=== PATIENT | male | born 1935 | race Caucasian/White ===

== ENCOUNTER 2023-03-23 13:07 | Emergency (ER) | payer OTHER, MEDICAID ==
[~2023-03-23] VITALS: Ht 165.1 cm; Wt 63.5 kg
[2023-03-23 13:10] VITALS: BP_SYST 126
--- NOTE | 2023-03-23 13:15 | NUR ---
BROUGHT BACK TO BED #5 AND TRIAGED. REPORT GIVEN TO JUAN JOSE
--- NOTE | 2023-03-23 13:20 | NUR ---
PT RECEIVED, CARE ASSUMED. PT PRESENTS SELF TO ER FOR EVALUATION OF HICCUPS X1 DAY. PT STATES THIS NEVER HAPPEN BEOFRE. DR LICONA AT BEDSIDE
[2023-03-23 13:48] LABS: BASOPHILS % (AUTO) 0.6 % (0.0-2.0); EOSINOPHILS # (AUTO) 0.2 K/uL (0.0-0.4); EOSINOPHILS % (AUTO) 2.6 % (0.0-4.0); HEMATOCRIT 42.4 % (36-54); HEMOGLOBIN 14.2 g/dL (14.0-18.0); LYMPHOCYTES # (AUTO) 1.8 K/uL (1.0-5.5); LYMPHOCYTES % (AUTO) 30.1 % (20.5-51.5); MEAN CORPUSCULAR HEMOGLOBIN 31 pg (27-31); MEAN CORPUSCULAR HGB CONC 34 % (32-36); MEAN CORPUSCULAR VOLUME 92 fL (79.0-98.0); MONOCYTES # (AUTO) 0.9 K/uL (0.0-1.0); MONOCYTES % (AUTO) 15.5 % (1.7-9.3); NEUTROPHILS # (AUTO) 3.1 K/uL (1.8-7.7); NEUTROPHILS % (AUTO) 51.2 % (40.0-70.0); PLATELET COUNT (AUTO) 197 K/uL (130-430); RED CELL DISTRIBUTION WIDTH 14.2 % (9.0-15.0)
[2023-03-23 14:05] LABS: ANION GAP 9 (5-15); CALCIUM 8.1 mg/dL (8.4-11.0); CHLORIDE 96 mmol/L (98-107); CREATININE 0.85 mg/dL (0.55-1.30); GLUCOSE 126 mg/dL (70-99); UREA NITROGEN, BLOOD 10 mg/dL (8-21)
[2023-03-23 14:09] LABS: ALANINE AMINOTRANSFERASE 33 U/L (12-78); ALBUMIN 3.7 g/dL (3.4-4.8); ASPARTATE AMINOTRANSFERASE 22 U/L (10-37); TOTAL BILIRUBIN 0.4 mg/dL (0.0-1.0)
[2023-03-23] MEDS ORDERED: METOCLOPRAMIDE HCL 10 MG/2 ML VIAL IM ONE (14:30)
[2023-03-23] MEDS ORDERED: METO-290 PO (15:34)
[2023-03-23] MEDS ORDERED: AUG875 PO (15:34)
[2023-03-23 16:13] VITALS: BP_SYST 137
--- NOTE | 2023-03-23 16:15 | NUR ---
Patient given written and verbal discharge instructions and verbalizes understanding. ER MD discussed with patient the results and treatment provided. Patient in stable condition. ID arm band removed. IV catheter removed intact and dressing applied, no active bleeding. Rx of given. Patient educated on pain management and to follow up with PMD. Pain Scale . Opportunity for questions provided and answered. Medication side effect fact sheet provided.
== END 2023-03-23 16:15 | disposition home or self-care (01) ==
LOC: SED 13:07
DX: J06.9 Acute upper respiratory infection, unspecified (principal); J32.9 Chronic sinusitis, unspecified; R06.6 Hiccough; R09.81 Nasal congestion; K21.9 Gastro-esophageal reflux disease without esophagitis; I10 Essential (primary) hypertension; Z79.899 Other long term (current) drug therapy; Z20.822 Contact with and (suspected) exposure to COVID-19
CPT/HCPCS: 99284; 96374; 87426; 80053; 85025; 36415; 93005; 87804 ×2; J2765

== ENCOUNTER 2024-05-06 14:07 | Inpatient (IN) | payer OTHER, MEDICAID ==
[~2024-05-06] VITALS: Ht 160 cm; Wt 65.9 kg
[~2024-05-06 14:07] MED LIST: AUG875 PO; METO-290 PO
[2024-05-06 14:34] VITALS: BP_SYST 132; PULSE 85; RESP 18; TEMP 98.3; O2SAT 97
[2024-05-06 14:52] LABS: HEMOGLOBIN 14.3 g/dL (14.0-18.0); MEAN CORPUSCULAR HEMOGLOBIN 31 pg (27-31); MEAN CORPUSCULAR HGB CONC 35 % (32-36); WHITE BLOOD COUNT (AUTO) 5.7 K/uL (4.8-10.8)
[2024-05-06 15:00] LABS: BASOPHILS % (AUTO) 0.5 % (0.0-2.0); EOSINOPHILS # (AUTO) 0.1 K/uL (0.0-0.4); EOSINOPHILS % (AUTO) 2.5 % (0.0-4.0); LYMPHOCYTES # (AUTO) 2.2 K/uL (1.0-5.5); LYMPHOCYTES % (AUTO) 38.1 % (20.5-51.5); MEAN CORPUSCULAR VOLUME 90 fL (79.0-98.0); MONOCYTES # (AUTO) 0.5 K/uL (0.0-1.0); MONOCYTES % (AUTO) 8.6 % (1.7-9.3); NEUTROPHILS # (AUTO) 2.8 K/uL (1.8-7.7); NEUTROPHILS % (AUTO) 50.3 % (40.0-70.0); PLATELET COUNT (AUTO) 307 K/uL (130-430); RED BLOOD CELL COUNT(AUTO) 4.57 MIL/uL (4.2-6.2); RED CELL DISTRIBUTION WIDTH 13.5 % (9.0-15.0)
[2024-05-06 15:06] LABS: ANION GAP 10 (5-15); CALCIUM 8.4 mg/dL (8.4-11.0); CARBON DIOXIDE 26 mmol/L (23-29); CHLORIDE 105 mmol/L (98-107); CREATININE 0.78 mg/dL (0.55-1.30); GLUCOSE 94 mg/dL (74-106); POTASSIUM 3.3 mmol/L (3.5-5.1); SODIUM SERUM 141 mmol/L (136-145); UREA NITROGEN, BLOOD 14 mg/dL (8-21)
[2024-05-06 15:20] LABS: INFLUENZA TYPE A Negative (NEGATIVE); INFLUENZA TYPE B NEGATIVE (NEGATIVE)
[2024-05-06] MEDS ORDERED: MAGNESIUM SULFATE 50 ML IV PRN (15:45)
[2024-05-06] MEDS ORDERED: MORPHINE 2 MG/ML INJ. SYRINGE IVP PRN ×2 (15:45)
[2024-05-06] MEDS ORDERED: MUPIROCIN 2% TOPICAL OINTMENT 22 GM NS PRN (15:45)
[2024-05-06] MEDS ORDERED: IPRATROPIUM/ALBUTEROL SULFATE 3 ML AMPUL.NEB (DUONEB) INH PRN (15:45)
[2024-05-06] MEDS ORDERED: POTASSIUM CHLORIDE 20 MEQ TABLET.ER PO PRN (15:45)
[2024-05-06] MEDS ORDERED: DOCUSATE SODIUM 100 MG CAPSULE PO PRN (15:45)
[2024-05-06] MEDS ORDERED: LORazepam 2 MG/ML VIAL IVP PRN (15:45)
[2024-05-06] MEDS ORDERED: ACETAMINOPHEN 325 MG TABLET PO PRN (15:45)
[2024-05-06] MEDS ORDERED: ZOLPIDEM TARTRATE 5 MG TABLET PO PRN (15:45)
[2024-05-06] MEDS ORDERED: ONDANSETRON HCL 4 MG/2 ML VIAL IVP PRN (15:45)
[2024-05-06 15:53] VITALS: BP_SYST 132; PULSE 85; O2SAT 97
[2024-05-06] MEDS ORDERED: cefTRIAXone 1 GM VIAL ONE (15:54)
[2024-05-06] MEDS: cefTRIAXone 1 GM in D5W 50 ML IV ONE (16:05)
[2024-05-06] MEDS ORDERED: LINA145C PO (16:40)
[2024-05-06] MEDS ORDERED: PANT40TA45 PO (16:40)
[2024-05-06] MEDS ORDERED: FINA5TAB11 PO (16:40)
[2024-05-06] MEDS: NACL 0.9% 1,000 ML IV SCH (18:00)
[2024-05-06] MEDS: POTASSIUM CHLORIDE 20 MEQ TABLET.ER PO ONE (18:46)
[2024-05-06] MEDS: AZITHROMYCIN 250 MG TABLET PO ONE (18:47)
[2024-05-06 20:49] VITALS: O2SAT 100
[2024-05-06] MEDS: DECADRON 4 MG TABLET PO SCH (23:38)
[2024-05-07 05:43] LABS: BASOPHILS % (AUTO) 0.2 % (0.0-2.0); EOSINOPHILS % (AUTO) 0.1 % (0.0-4.0); HEMATOCRIT 41.4 % (36-54); LYMPHOCYTES % (AUTO) 17.3 % (20.5-51.5); MEAN CORPUSCULAR HEMOGLOBIN 31 pg (27-31); MEAN CORPUSCULAR HGB CONC 34 % (32-36); MEAN CORPUSCULAR VOLUME 91 fL (79.0-98.0); MONOCYTES # (AUTO) 0.1 K/uL (0.0-1.0); MONOCYTES % (AUTO) 2.1 % (1.7-9.3); NEUTROPHILS # (AUTO) 4.8 K/uL (1.8-7.7); NEUTROPHILS % (AUTO) 80.3 % (40.0-70.0); PLATELET COUNT (AUTO) 289 K/uL (130-430); RED BLOOD CELL COUNT(AUTO) 4.57 MIL/uL (4.2-6.2); RED CELL DISTRIBUTION WIDTH 13.5 % (9.0-15.0)
[2024-05-07 06:02] LABS: ERYTHROCYTE SEDIMENTATION RATE 12 MM/HR (0-15)
[2024-05-07 06:05] LABS: ANION GAP 11 (5-15); CALCIUM 8.7 mg/dL (8.4-11.0); CARBON DIOXIDE 26 mmol/L (23-29); CHLORIDE 104 mmol/L (98-107); GLUCOSE 141 mg/dL (74-106); POTASSIUM 4.2 mmol/L (3.5-5.1); SODIUM SERUM 141 mmol/L (136-145); UREA NITROGEN, BLOOD 13 mg/dL (8-21)
[2024-05-07 07:10] LABS: ALBUMIN 3.7 g/dL (3.4-4.8); BILIRUBIN,DIRECT 0.1 mg/dL (0.0-0.3); TOTAL BILIRUBIN 0.6 mg/dL (0.0-1.0); TOTAL PROTEIN, SERUM 7.7 g/dL (6.4-8.3)
[2024-05-07 08:00] VITALS: BP_SYST 144; PULSE 96; RESP 18; TEMP 98; O2SAT 98
[2024-05-07] MEDS: CHOLECALCIFEROL (VITAMIN D3) 2,000 UNIT TABLET PO SCH (09:29)
[2024-05-07] MEDS: ASCORBIC ACID 500 MG TABLET PO SCH (09:29)
[2024-05-07] MEDS: AZITHROMYCIN 250 MG TABLET PO SCH (09:30)
[2024-05-07] MEDS: ENOXAPARIN SODIUM 40 MG/0.4 ML SYRINGE SUBCUT SCH (09:30)
[2024-05-07 11:09] VITALS: BP_SYST 141; PULSE 91; RESP 18; TEMP 98; O2SAT 98
[2024-05-07] MEDS ORDERED: cefTRIAXone 1 GM IVPB PREMIX 50 ML IV SCH (16:00)
[2024-05-07] MEDS: CEFTRIAXONE SOD 1 GM/ D5W 50 ML IV SCH (16:00)
[2024-05-07 16:19] VITALS: BP_SYST 139; PULSE 90; RESP 18; TEMP 98; O2SAT 98
[2024-05-07 19:30] VITALS: O2SAT 99
[2024-05-07 20:00] VITALS: BP_SYST 154; PULSE 87; RESP 17; TEMP 97.9; O2SAT 99
[2024-05-07 23:54] VITALS: BP_SYST 156; PULSE 72; RESP 18; TEMP 98.1; O2SAT 100
[2024-05-08] VITALS: BP_SYST 156; PULSE 72; RESP 18; TEMP 98.1; O2SAT 100
[2024-05-08 08:00] VITALS: BP_SYST 148; PULSE 83; RESP 20; TEMP 97.4; O2SAT 99
[2024-05-08 12:19] VITALS: BP_SYST 166; PULSE 76; RESP 17; TEMP 98; O2SAT 99
[2024-05-08 16:00] VITALS: BP_SYST 150; PULSE 67; RESP 18; TEMP 98.1; O2SAT 98
[2024-05-08 20:00] VITALS: BP_SYST 155; PULSE 93; RESP 16; TEMP 98.6; O2SAT 97
[2024-05-09] VITALS (7 sets, daily range): BP systolic 139–152; PULSE 81–94; RESP 17–18; TEMP 97.2–98.4; O2SAT 95–98
[2024-05-09 09:21] LABS: BASOPHILS % (AUTO) 0.2 % (0.0-2.0); EOSINOPHILS # (AUTO) 0.1 K/uL (0.0-0.4); EOSINOPHILS % (AUTO) 1.4 % (0.0-4.0); HEMATOCRIT 41.8 % (36-54); HEMOGLOBIN 14.1 g/dL (14.0-18.0); LYMPHOCYTES # (AUTO) 2.5 K/uL (1.0-5.5); MEAN CORPUSCULAR HEMOGLOBIN 31 pg (27-31); MEAN CORPUSCULAR HGB CONC 34 % (32-36); MEAN CORPUSCULAR VOLUME 91 fL (79.0-98.0); MONOCYTES # (AUTO) 0.7 K/uL (0.0-1.0); MONOCYTES % (AUTO) 10.3 % (1.7-9.3); NEUTROPHILS # (AUTO) 3.2 K/uL (1.8-7.7); NEUTROPHILS % (AUTO) 50.1 % (40.0-70.0); PLATELET COUNT (AUTO) 325 K/uL (130-430); RED CELL DISTRIBUTION WIDTH 13.5 % (9.0-15.0); WHITE BLOOD COUNT (AUTO) 6.5 K/uL (4.8-10.8)
[2024-05-09 09:46] LABS: ERYTHROCYTE SEDIMENTATION RATE 4 MM/HR (0-15)
[2024-05-09 10:20] LABS: ALANINE AMINOTRANSFERASE 59 U/L (12-78); ALBUMIN 3.7 g/dL (3.4-4.8); ANION GAP 6 (5-15); ASPARTATE AMINOTRANSFERASE 54 U/L (10-37); BILIRUBIN,DIRECT 0.1 mg/dL (0.0-0.3); CALCIUM 8.1 mg/dL (8.4-11.0); CARBON DIOXIDE 28 mmol/L (23-29); CHLORIDE 106 mmol/L (98-107); GLUCOSE 110 mg/dL (74-106); POTASSIUM 3.5 mmol/L (3.5-5.1); SODIUM SERUM 140 mmol/L (136-145); TOTAL BILIRUBIN 0.7 mg/dL (0.0-1.0); TOTAL PROTEIN, SERUM 7.5 g/dL (6.4-8.3); UREA NITROGEN, BLOOD 13 mg/dL (8-21)
[2024-05-10 01:15] VITALS: BP_SYST 162; PULSE 65; RESP 18; TEMP 98.6; O2SAT 95
[2024-05-10 08:00] VITALS: BP_SYST 161; PULSE 70; RESP 16; TEMP 98.8; O2SAT 98
[2024-05-10 08:33] LABS: BASOPHILS % (AUTO) 0.3 % (0.0-2.0); EOSINOPHILS # (AUTO) 0.1 K/uL (0.0-0.4); EOSINOPHILS % (AUTO) 2.2 % (0.0-4.0); HEMATOCRIT 38.7 % (36-54); HEMOGLOBIN 13.2 g/dL (14.0-18.0); LYMPHOCYTES % (AUTO) 37.9 % (20.5-51.5); MEAN CORPUSCULAR HEMOGLOBIN 31 pg (27-31); MEAN CORPUSCULAR HGB CONC 34 % (32-36); MEAN CORPUSCULAR VOLUME 90 fL (79.0-98.0); MONOCYTES # (AUTO) 0.6 K/uL (0.0-1.0); MONOCYTES % (AUTO) 11.8 % (1.7-9.3); NEUTROPHILS # (AUTO) 2.6 K/uL (1.8-7.7); NEUTROPHILS % (AUTO) 47.8 % (40.0-70.0); PLATELET COUNT (AUTO) 305 K/uL (130-430); RED BLOOD CELL COUNT(AUTO) 4.28 MIL/uL (4.2-6.2); RED CELL DISTRIBUTION WIDTH 13.6 % (9.0-15.0); WHITE BLOOD COUNT (AUTO) 5.4 K/uL (4.8-10.8)
[2024-05-10 08:40] LABS: ERYTHROCYTE SEDIMENTATION RATE 1 MM/HR (0-15)
[2024-05-10 08:53] LABS: ALANINE AMINOTRANSFERASE 46 U/L (12-78); ALBUMIN 3.3 g/dL (3.4-4.8); ANION GAP 8 (5-15); ASPARTATE AMINOTRANSFERASE 38 U/L (10-37); BILIRUBIN,DIRECT 0.2 mg/dL (0.0-0.3); CALCIUM 8.1 mg/dL (8.4-11.0); CARBON DIOXIDE 28 mmol/L (23-29); CHLORIDE 105 mmol/L (98-107); CREATININE 0.73 mg/dL (0.55-1.30); GLUCOSE 95 mg/dL (74-106); POTASSIUM 3.6 mmol/L (3.5-5.1); SODIUM SERUM 141 mmol/L (136-145); TOTAL BILIRUBIN 0.6 mg/dL (0.0-1.0); TOTAL PROTEIN, SERUM 6.6 g/dL (6.4-8.3); UREA NITROGEN, BLOOD 7 mg/dL (8-21)
[2024-05-10] MEDS ORDERED: ZIT250 PO (09:01)
[2024-05-10] MEDS ORDERED: LISI-209 PO (09:02)
[2024-05-10] MEDS: LISINOPRIL 10 MG TABLET (PRINIVIL) PO SCH (10:10)
[2024-05-10 12:00] VITALS: BP_SYST 174; PULSE 65; RESP 18; TEMP 98.4; O2SAT 99
[2024-05-10] MEDS: cloNIDine HCL 0.1 MG TABLET PO PRN (14:04)
[2024-05-10 15:52] VITALS: BP_SYST 150; PULSE 88; RESP 18; TEMP 98.4; O2SAT 99
[2024-05-10 16:24] VITALS: BP_SYST 150; PULSE 88; RESP 18; TEMP 98.4; O2SAT 99
[2024-05-10 17:40] VITALS: O2SAT 99
== END 2024-05-10 18:06 | disposition home or self-care (01) | DRG 177 ==
LOC: SED 14:07 → SMU 16:13
PROVIDERS: ADMIT General Practice; ATTEND General Practice
PROC: XW033E5 Introduction of Remdesivir Anti-infective into Peripheral Vein, Percutaneous Approach, New Technology Group 5 (ICD-10-PCS; principal; 2024-05-06)
DX: U07.1 COVID-19 (principal); J12.82 Pneumonia due to coronavirus disease 2019; J69.0 Pneumonitis due to inhalation of food and vomit; J96.00 Acute respiratory failure, unspecified whether with hypoxia or hypercapnia; I10 Essential (primary) hypertension; N40.0 Benign prostatic hyperplasia without lower urinary tract symptoms; Z79.899 Other long term (current) drug therapy
CPT/HCPCS: 36415; 71045; 80048; 80076; 83037; 83735; 85025; 85379; 85651; 87040; 94070; 94760; 96361; 96365; 99285; J0696; J1650; J7050; J7060; J8540; Q0144